=== PATIENT | female | born 2000 | race Caucasian/White ===

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

== ENCOUNTER → 2021-05-31 | Outpatient (CLI) | payer OTHER ==
--- NOTE | 2021-05-31 12:11 | REP ---
INDICATION: RT BREAST U/S,F/U FIBROADENOMA. COMPARISON: 12/20/2020. TECHNIQUE: Real-time sonographic evaluation of right breast performed. FINDINGS: At the 2 o'clock position of the right breast there is again a lobulated solid nodule with internal blood flow with Doppler evaluation. It measures 1.8 x 0.6 x 1.7 cm and is essentially unchanged compared to the prior study. With elastography interrogation average KP a value 8.14. IMPRESSION: BIRADS/ACR category 3, probably benign. Stable lobulated nodule 2 o'clock right breast most likely represents a fibroadenoma. RECOMMENDATION: Recommend follow-up ultrasound in 6 months. <Electronically signed by Andrei Archer > 05/31/21 [id number]
== END ==
LOC: M WHC 07:42
PROVIDERS: ATTEND Nurse Practitioner Women's Health
DX: N63.10 Unspecified lump in the right breast, unspecified quadrant (principal)

== ENCOUNTER → 2022-01-17 | Outpatient (CLI) | payer OTHER | LOC: M WHC 12:05 | PROVIDERS: ATTEND Internal Medicine | DX: N63.10 Unspecified lump in the right breast, unspecified quadrant (principal) ==

== ENCOUNTER → 2022-10-15 | Outpatient (CLI) | payer OTHER | LOC: M RAD 09:56 | PROVIDERS: ATTEND Internal Medicine | DX: R22.2 Localized swelling, mass and lump, trunk (principal) ==

== ENCOUNTER → 2023-01-13 | Outpatient (CLI) | payer OTHER ==
[2023-01-13 14:31] LABS: HEMOGLOBIN A1c 4.6 % (4.0-6.0)
[2023-01-13 14:46] LABS: FREE T4 1.07 NG/DL (0.89-1.76); THYROID STIMULATING HORMONE 1.306 uIU/ML (0.55-4.78)
[2023-01-13 14:48] LABS: PROLACTIN 18.23 NG/ML
[2023-01-17 21:10] LABS: 17 HYDROXY PROGESTERONE 195 ng/dL (.); TESTOSTERONE FREE (DIRECT) 11.9 pg/mL (0.0-4.2)
== END ==
LOC: M PLALAB 10:32
PROVIDERS: ATTEND Nurse Practitioner Family
DX: Z12.4 Encounter for screening for malignant neoplasm of cervix (principal); N92.6 Irregular menstruation, unspecified
CPT/HCPCS: 36415; 82627; 83036; 83498; 84146; 84402; 84403; 84439; 84443; G0123

== ENCOUNTER → 2025-02-22 | Outpatient (REF) | payer OTHER | LOC: M PLALAB 09:24 | PROVIDERS: ATTEND Nurse Practitioner Family | DX: Z12.4 Encounter for screening for malignant neoplasm of cervix (principal) ==